=== PATIENT | male | born 1980 | race Hispanic/Latino ===

== ENCOUNTER 2016-06-17 13:00 | Day surgery (SDC) | payer OTHER ==
[~2016-06-17] VITALS: Ht 167.6 cm; Wt 85.7 kg
[~2016-06-17 13:00] MED LIST: 0.9% Sodium Chloride 1,000 ML IV SCH; METR500T19 PO; OMEP40CA36 PO; Sodium Chloride LOK Flush 10 mL Syringe IV PRN; fentaNYL-PF 50 mCg/mL 2 mL Inj IVPUSH PRN
[2016-06-17 13:48] VITALS: BP 112/74; PULSE 49; RESP 14; O2SAT 98
[2016-06-17 15:28] VITALS: BP 108/72; PULSE 55; O2SAT 97
[2016-06-17 15:38] VITALS: BP 110/68; PULSE 55; RESP 14; O2SAT 98
[2016-06-17 15:47] VITALS: BP 105/75; PULSE 55; RESP 14; O2SAT 98
--- NOTE | 2016-06-18 01:04 | ENDO ---
[address] [address] ENDOSCOPY PROCEDURE PATIENT: LIANET GAVIN : 1980 MR#: [id number] ADMIT: 06/17/2016 JOB ID: [id number] DATE OF PROCEDURE: 06/17/2016 PROCEDURE: Esophagogastroduodenoscopy and colonoscopy with cold snare polypectomy and targeted biopsies. INDICATION: A 35-year-old male recently diagnosed with a Helicobacter pylori infection who is currently on triple therapy. He did have some hematemesis up to about a week and a half ago, but this has all since resolved. Esophagogastroduodenoscopy was requested. He additionally has had some intermittent symptoms of rectal bleeding going on two months. Colonoscopic examination is therefore also requested. EQUIPMENT: 1. GIF-H180. 2. PCF-H180AL. SEDATION: 1. Versed 7 mg. 2. Fentanyl 150 mcg. COMPLICATIONS: None identified. BOWEL PREPARATION: Fair, adequate exam. PROCEDURE INFORMATION: After the risks and benefits were explained, written and verbal informed consent was obtained. The patient was brought into the endoscopy suite and placed into the left lateral decubitus position. Sedation was achieved using the above-stated medications with the addition of oxygen via nasal cannula. The scope introduced into the mouth through the bite block and advanced to the second portion of the duodenum. The scope was slowly withdrawn to carefully examine the mucosa for any defects or lesions. Retroflexed views were accomplished in the stomach. The stomach was decompressed. The scope was removed from the patient who tolerated the procedure well. The patient was then turned around. A digital rectal examination was accomplished. It felt as though there was a tense anal sphincter mechanism, but no firm, hard mass effect. There was a spongy irregularity deep within the anal canal initially thought to possibly represent hemorrhoids. The scope was introduced into the rectum and advanced under direct visualization to cecum. The terminal ileum was interrogated. The scope then slowly withdrawn to carefully examine the mucosa for any defects or lesions. Retroflexed views from within the rectum disclosed an irregular ulcerated polypoid structure taking up approximately 40% of the circumference of the bowel at the level of the anal verge. There was then a small break in the polypoid structure, followed by a smaller sessile polypoid grouping perhaps in the neighborhood of about 1 cm x 8 mm or so. The larger structure taking up 40% of the luminal circumference was estimated to be about 8 or 9 mm x 2 cm. Retroflexed views enabled us to get excellent photographs. We also took multiple biopsies of this lesion. Ultimately, the scope was then withdrawn from the patient, who tolerated the procedure well. FINDINGS: 1. Duodenum: No pathology identified. 2. Stomach: Diffuse gastropathy appreciated. Healing erosive changes noted. No ulcers. No mass lesions. Retroflexed views of the LES were unremarkable. In that he is currently on active therapy for H. pylori, I did not pursue biopsy. 3. Esophagus: The squamocolumnar junction correlated with the top of the gastric folds. No acute erosive changes. No strictures. No mass lesions. The GEJ was at 38 cm from the incisors. 4. Terminal ileum: This was visually normal. 5. Colon: There was some scant diverticula in the left colon. There was a diminutive 4 mm polyp removed with cold snare in the sigmoid. The above described irregular distal rectal polypoid mass lesion was biopsied several times and submitted for histopathology. ENDOSCOPIC DIAGNOSES: 1. Erosive gastropathy. 2. Otherwise, visually unremarkable esophagogastroduodenoscopy. 3. Inflammatory irregular polypoid distal rectal mass lesion. 4. Diverticulosis. 5. Diminutive sigmoid polyp. RECOMMENDATIONS: 1. Await histopathology. 2. Finish out H. pylori triple therapy. 3. After coming off PPI, it would be appropriate to repeat Helicobacter pylori breath testing in about four weeks' time. 4. The etiology of this lesion in the rectum is a little unknown. It did not look classic for rectal adenocarcinoma. This may all be inflammatory, but certainly if there are any elements of neoplasia identified at histology then further abdominal imaging, CEA, Oncology consultation, Surgical consultation will be appropriate. 5. If this is all strictly inflammatory, I would be inclined to pursue a trial of Canasa suppository therapy. The patient is encouraged to follow up with us on biopsy results within the next 72 hours to learn of disposition.
[2016-06-18] MEDS ORDERED: Lidocaine Topical 2% 30 mL Jelly ONE (07:58)
--- NOTE | 2016-06-19 14:27 | PATH ---
SURGICAL PATHOLOGY Attending Physician:Chuy Murphy CASE STATUS: Signed Out PATIENT NAME: LIANET GAVIN PID: [id number] : 1980 DATE COLLECTED:06/17/2016 00:00 SPECIMEN: 1: Colon, Biopsy 2: Rectum, Biopsy CLINICAL HISTORY: 1). SIGMOID POLYP X1 2). RECTAL BIOPSY FINAL DIAGNOSIS: 1. Sigmoid Colon Polyp: Tubular adenoma. 2. Rectal Biopsy: Fragments of rectal mucosa with severe acute and chronic inflammation, extensive ulceration and granulation tissue formation. Negative for granulomas. Negative or dysplasia and malignancy. ICD10: D12.5 GROSS DESCRIPTION: The specimen is received in two formalin filled containers labeled with the patient's name. 1). The specimen is sublabeled "sigmoid polyp x1" and consists of a 0.2 x 0.2 x 0.1 CM portion of tissue which is entirely submitted in cassette 1A. 2). The specimen is sublabeled "rectal" and consists of 5 portions of tissue which aggregate to 0.3 x 0.3 x 0.2 CM. The specimen is entirely submitted in cassette 2A. 06/18/2016 [facility] ICD-9 CODES: CPT CODES: 1: 85730 2: 27649 Electronically Signed Out Adis Abernathy MD [facility] Pathology [facility] [address], [place] [address] Technical component performed at [facility], [facility] [address], [place], [address]
== END 2016-06-17 23:59 | disposition home or self-care (01) ==
LOC: END 13:00
PROVIDERS: ATTEND Internal Medicine Gastroenterology
DX: D12.5 Benign neoplasm of sigmoid colon (principal); K62.1 Rectal polyp; K57.30 Diverticulosis of large intestine without perforation or abscess without bleeding; K31.9 Disease of stomach and duodenum, unspecified; K21.9 Gastro-esophageal reflux disease without esophagitis; A04.8 Other specified bacterial intestinal infections
CPT/HCPCS: 43235; 45380; 45385; 88305; 99153; G0500; J2250; J3010; J7030